=== PATIENT | male | born 1995 | race African-American/Black ===

== ENCOUNTER 2022-11-19 19:44 | Emergency (ER) | payer OTHER, SELFPAY ==
--- NOTE | ~2022-11-19 | XR_ITS ---
EXAMINATION: XR wrist RT min 3V INDICATION: Right wrist pain TECHNIQUE: Four views of the right wrist are obtained. COMPARISON: None available FINDINGS: No fracture, dislocation, or subluxation. The bones, soft tissues, and joint spaces are nor mal. IMPRESSION: 1. No acute osseous abnormality. Reviewed, dictated and finalized at location F. ER OPERATOR PIN
--- NOTE | 2022-11-19 19:47 | ED.EXTPRO ---
HPI - Extremity Problem General Chief complaint: Extremity Injury, Upper Stated complaint: Right Wrist Pain Time Seen by Provider: 11/19/22 19:47 Source: patient Mode of arrival: ambulatory Limitations: no limitations History of Present Illness HPI Narrative: Rosie is a 27-year-old male patient presenting to the clinic with complaints of right wrist pain. He reports his right wrist was injured-possibly dislocated earlier today and he popped back into place. He is having pain over radial aspect of the right wrist. Related Data Home Medications Medication Instructions Recorded Confirmed No Home Medications 11/19/22 11/19/22 Allergies Allergy/AdvReac Type Severity Reaction Status Date / Time No Known Allergies Allergy Verified 11/19/22 19:56 Review of Systems Review of Systems: Pertinent positives per HPI. Patient denies any fever, chills, rash, headache, visual changes, dizziness, cough, shortness of breath, chest pain, palpitations, nausea, vomiting, diarrhea, constipation, abdominal pain, or any urinary issues. PMFSH Comments At the time of my signature, I reviewed and agree with the nursing past medical, surgical, social, and family history. There is no relevant family history pertinent to the patient complaint. Exam Narrative: General: Well-developed, well nourished, in no apparent distress Head: Normocephalic, atraumatic. Cardio: Regular rate and rhythm, s1 and s2 normal, no murmur appreciated. Resp: Clear to auscultation bilaterally, no rhonchi, rales, wheezing or rubs. Musculoskeletal: Swelling over the anterior aspect of the right radius, tender to palpation over the right radial wrist, wrist flexion and extension along with ulnar and radial deviation are limited due to pain, he is able to flex and extend all his fingers without lag, muscle strength strong and equal, peripheral pulse strong, no cyanosis, normal gait and station Course Course Emergency Course: Portions of this record may have been created with voice recognition software. Level of Care: Express Care Visit Vital Signs Vital signs: Vital Signs Temperature 36.8 C 11/19/22 19:58 Pulse Rate 95 11/19/22 19:58 Respiratory Rate 16 11/19/22 19:58 Blood Pressure 156/79 H 11/19/22 19:58 Oxygen Delivery Room Air 11/19/22 19:58 Temperature 36.8 C 11/19/22 20:01 Pulse Rate 95 11/19/22 20:01 Respiratory Rate 16 11/19/22 20:01 Blood Pressure 156/79 H 11/19/22 20:01 Oxygen Delivery Room Air 11/19/22 20:01 Vital signs reviewed MDM - Extremity (Nontraumatic) MDM Narrative Medical decision making narrative: At the time of visit patient is resting comfortably on the exam table Imaging Data Radiologist's impression: [facility] [address] [place] [address] XRay Report Signed Patient: Rosie Willingham : 1995 MR#: [id number] Age/Sex: 27 / M Acct:[id number] Loc: [facility]? ? ADM Date: 11/19/22Attending Dr: Ordering Physician: Beto Bolaños APRN Date of Service: 11/19/22 Procedure(s): XR wrist RT min 3V Accession Number(s): [id number] cc: Beto Bolaños APRN; FINISH MACHINE TENDER PHYSICIAN~ EXAMINATION: XR wrist RT min 3V INDICATION: Right wrist pain TECHNIQUE: Four views of the right wrist are obtained. COMPARISON: None available FINDINGS: No fracture, dislocation, or subluxation. The bones, soft tissues, and joint spaces are normal. IMPRESSION: 1. No acute osseous abnormality. Reviewed, dictated and finalized at location F. NG SCRUBBER Dictated By:? Robin Tracey MD? 11/19/222010 Signed By:? ? <Electronically signed by? Robin Tracey MD in OV> 11/19/222010 Discharge Plan Discharge Clinical Impression: Wrist pain, right Contusion of right wrist Qualifiers: Encounter
[2022-11-19 19:58] VITALS: BP 156/79; PULSE 95; RESP 16; TEMP 36.8
[2022-11-19 20:01] VITALS: BP 156/79; PULSE 95; RESP 16; TEMP 36.8
== END 2022-11-19 20:20 | disposition home or self-care (01) ==
PROVIDERS: Emergency Provider Nurse Practitioner Family
DX: S60.211A Contusion of right wrist, initial encounter (principal); X58.XXXA Exposure to other specified factors, initial encounter
CPT/HCPCS: 73110; 99213; G0463

== ENCOUNTER 2023-03-12 14:38 | Emergency (ER) | payer MEDICAID, SELFPAY ==
[2023-03-12 14:47] VITALS: BP 132/62; PULSE 84; RESP 16; TEMP 36.4; O2SAT 97
--- NOTE | 2023-03-12 14:56 | ED.GENADULT ---
HPI - General Adult General Chief complaint: Unspecified Stated complaint: Inhaler Time Seen by Provider: 03/12/23 14:50 Source: patient Mode of arrival: ambulatory Limitations: no limitations History of Present Illness HPI narrative: Tobi is a 27-year-old male patient presenting to the clinic today with complaints shortness of breath and wheezing that began this morning. He reports he is out of his albuterol inhaler and is requesting a refill. Does have history of asthma. States cough is not productive. No fever or chills. Related Data Home Medications Medication Instructions Recorded Confirmed albuterol sulfate 90 mcg/actuation 2 puff inhalation DAILY PRN SOB 03/12/23 03/12/23 aerosol inhaler (Ventolin HFA) Allergies Allergy/AdvReac Type Severity Reaction Status Date / Time No Known Allergies Allergy Verified 03/12/23 14:43 Review of Systems Review of Systems: Pertinent positives per HPI. Patient denies any fever, chills, rash, headache, visual changes, dizziness, runny nose, sore throat, shortness of breath, chest pain, palpitations, nausea, vomiting, diarrhea, constipation, abdominal pain, or any urinary issues. PMFSH Comments At the time of my signature, I reviewed and agree with the nursing past medical, surgical, social, and family history. There is no relevant family history pertinent to the patient complaint. Exam Narrative: General: Well-developed, well nourished, in no apparent distress Head: Normocephalic, atraumatic Eyes: Pupils equally round and reactive to light bilaterally, EOM intact, sclera and conjunctive clear, no discharge, lids normal Ears: TMs intact and clear, ear canals clear, no drainage, grossly hearing normal. Nose: Nares patent, no discharge, no inflammation, no sinus tenderness. Mouth: Oropharynx without lesions or masses, good dentition, MMM. Neck: Supple, trachea midline, no enlargement of anterior or posterior cervical nodes, no thyroid masses or goiter palpable. Cardio: Regular rate and rhythm, s1 and s2 normal, no murmur appreciated. Resp: Inspiratory and expiratory wheezing throughout lung verdin, no rhonchi, rales, or rubs Course Course Emergency Course: Portions of this record may have been created with voice recognition software. Level of Care: Express Care Visit Vital Signs Vital signs: Vital Signs Temperature 36.4 C 03/12/23 14:47 Pulse Rate 84 03/12/23 14:47 Respiratory Rate 16 03/12/23 14:47 Blood Pressure 132/62 03/12/23 14:47 Pulse Oximetry 97 03/12/23 14:47 Oxygen Delivery Room Air 03/12/23 14:47 Temperature 36.4 C 03/12/23 14:47 Pulse Rate 84 03/12/23 14:47 Respiratory Rate 16 03/12/23 14:47 Blood Pressure 132/62 03/12/23 14:47 Pulse Oximetry 97 03/12/23 14:47 Oxygen Delivery Room Air 03/12/23 14:47 Vital signs reviewed Medical Decision Making MDM Narrative Medical decision making narrative: At the time of visit patient is resting comfortably on the exam table. Patient is wheezing. Offered nebulizer treatment he declines. Prescription for albuterol inhaler was sent to pharmacy and supportive measures were discussed with the patient he voiced understanding discharge instructions and agrees to treatment plan Differential Diagnosis Differential Diagnosis: Asthma, bronchitis, COPD Vital Signs Vital Signs: Vital Signs Temperature 36.4 C 03/12/23 14:47 Pulse Rate 84 03/12/23 14:47 Respiratory Rate 16 03/12/23 14:47 Blood Pressure 132/62 03/12/23 14:47 Pulse Oximetry 97 03/12/23 14:47 Oxygen Delivery Room Air 03/12/23 14:47 Temperature 36.4 C 03/12/23 14:47 Pulse Rate 84 03/12/23 14:47 Respiratory Rate 16 03/12/23 14:47 Blood Pressure 132/62 03/12/23 14:47 Pulse Oximetry 97 03/12/23 14:47 Oxygen Delivery Room Air 03/12/23 14:47 Discharge Plan Discharge Clinical Impression: Asthma Patient Disposition: Home, Self-Care
== END 2023-03-12 15:01 | disposition home or self-care (01) ==
PROVIDERS: Emergency Provider Nurse Practitioner Family
DX: J45.909 Unspecified asthma, uncomplicated (principal)
CPT/HCPCS: 99213; G0463

== ENCOUNTER 2023-03-24 14:54 | Emergency (ER) | payer MEDICAID, SELFPAY ==
--- NOTE | ~2023-03-24 | XR_ITS ---
PA, oblique, and lateral views of the right thumb Clinical history: Injury FINDINGS: No fracture or dislocation seen. Osseous alignment is anatomic. Joint spaces are preserved. Soft tissues are unremarkable. IMPRESSION: Unremarkable exam. Reviewed, dictated and finalized at location M. IMPRESSION: Unremarkable exam.
[2023-03-24 15:04] VITALS: BP 126/70; PULSE 75; RESP 16; TEMP 36.9; O2SAT 100
--- NOTE | 2023-03-24 15:26 | ED.UPPEXIN ---
HPI - Extremity Injury (Upper) General Chief Complaint: Extremity Injury, Upper Stated Complaint: right thumb pain Time Seen by Provider: 03/24/23 15:22 Source: patient and RN notes reviewed Mode of arrival: ambulatory Limitations: no limitations History of Present Illness HPI narrative: 27-year-old male presents with concern for injury to the 1st digit of the right hand. He reports he injured it at football yesterday, it felt like it popped out of place and then he popped it back in. He reports decreased range of motion, swelling, pain to the digit. MD complaint: injury to: right and finger Related Data Home Medications Medication Instructions Recorded Confirmed albuterol sulfate 90 mcg/actuation 2 puff inhalation DAILY PRN SOB 03/12/23 03/24/23 aerosol inhaler (Ventolin HFA) Allergies Allergy/AdvReac Type Severity Reaction Status Date / Time No Known Allergies Allergy Verified 03/24/23 15:03 Review of Systems Review of Systems: CONSTITUTIONAL: Denies malaise, chills, sweats, or fever. SKIN: Denies rash or itching, open skin, laceration, abrasion, redness, warmth MUSCULOSKELETAL: Reports pain, swelling to the 1st digit of the right hand NEUROLOGIC: Denies numbness, weakness All systems reviewed & are unremarkable except as noted in HPI and below PMFSH Comments At time of signature, agree with nursing past medical, surgical, social and family history. There is no relevant family history pertinent to the presenting complaint Exam Narrative: GENERAL: Well-appearing, well-nourished, and in no acute distress. HEAD: Normocephalic EYES: PERRLA, conjunctivae clear NECK: Supple. CHEST: Speaks in full sentences. No respiratory distress. HEART: Regular rate and rhythm. Normal and equal peripheral pulses. EXTREMITIES: 1st digit of the right hand has normal sensation. 3/5 strength with digit flexion, extension. Range of motion limited. No clubbing, cyanosis. Tenderness, edema noted to the base of the digit. Skin intact. Normal digital cascade with flexion of fingers, median, ulnar and radial nerve intact. Normal sensation of each side of finger. Normal thumb opposition. Good capillary refill and radial pulse. Distal capillary refill less than 3 seconds. SKIN: Warn, dry, intact, pink. No rash NEURO: Alert and oriented x3. PSYCH: Normal mood and affect Course Course Emergency Course: Patient was advised that if his symptoms do not improve he should follow-up with a hand specialist. Patient is aware of diagnosis, understands and agrees to treatment plan. Anticipatory guidance given. Patient agrees to follow-up as directed and is aware of reasons to seek care at the emergency department. Portions of this record may have been created with voice recognition software Level of Care: Express Care Visit Vital Signs Vital signs: Vital Signs Temperature 98.4 F 03/24/23 15:04 Pulse Rate 75 03/24/23 15:04 Respiratory Rate 16 03/24/23 15:04 Blood Pressure 126/70 03/24/23 15:04 Pulse Oximetry 100 03/24/23 15:04 Oxygen Delivery Room Air 03/24/23 15:04 Temperature 98.4 F 03/24/23 15:04 Pulse Rate 75 03/24/23 15:04 Respiratory Rate 16 03/24/23 15:04 Blood Pressure 126/70 03/24/23 15:04 Pulse Oximetry 100 03/24/23 15:04 Oxygen Delivery Room Air 03/24/23 15:04 Reviewed. Critical Care Time Critical Care Time Critical Care Time: No Discharge Plan Discharge Clinical Impression: Finger sprain Patient Disposition: Home, Self-Care Condition: Stable Instructions: Finger Sprain (ED) Additional Instructions: Avoid activities that cause pain until the pain subsides. Ice to the area 20-30 minutes 4-6 times a day Elevate above heart Oorthopedic splint as directed for the next 5-7 days Tylenol for lesser pain Ibuprofen regularly for the next 2-3 days for the inflammation Follow up with your primary care provider if the condition is not improving within 1 week
== END 2023-03-24 15:40 | disposition home or self-care (01) ==
PROVIDERS: Emergency Provider Nurse Practitioner
DX: S63.601A Unspecified sprain of right thumb, initial encounter (principal); X58.XXXA Exposure to other specified factors, initial encounter; Y93.61 Activity, american tackle football; J45.909 Unspecified asthma, uncomplicated
CPT/HCPCS: 29130; 73140; 99213; G0463

== ENCOUNTER 2023-06-17 12:11 | Emergency (ER) | payer MEDICAID, SELFPAY ==
[2023-06-17 12:23] VITALS: BP 120/76; PULSE 84; RESP 16; TEMP 37.2; O2SAT 98
--- NOTE | 2023-06-17 12:30 | ED.ASTHMA ---
HPI - Asthma General Chief Complaint: Asthma Stated Complaint: Asthma Time Seen by Provider: 06/17/23 12:30 Source: patient Mode of arrival: ambulatory Limitations: no limitations History of Present Illness HPI Narrative: 27 yo M with hx of asthma presents for medication refill. Does not have a primary care physician. States asthma been attacking up the past month . Mild SOB at this time. All systems reviewed and negative except as noted above. Related Data Home Medications Medication Instructions Recorded Confirmed albuterol sulfate 90 mcg/actuation 2 puff inhalation DAILY PRN SOB 03/12/23 06/17/23 aerosol inhaler (Ventolin HFA) Allergies Allergy/AdvReac Type Severity Reaction Status Date / Time No Known Allergies Allergy Verified 06/17/23 12:24 Review of Systems Review of Systems: CONSTITUTIONAL: Denies fever, chills, or sweats. EYES: Denies visual changes, redness, or discharge. ENT: Denies rhinorrhea, congestion, sore throat, or otalgia. CARDIOVASCULAR: Denies chest pain, palpitations, or edema. RESPIRATORY: Reports cough, wheezing and mild dyspnea. GASTROINTESTINAL: Denies abdominal pain, nausea, vomiting, or diarrhea. GENITOURINARY: Denies dysuria or hematuria. SKIN: Denies rash or itching. MUSCULOSKELETAL: Denies back pain, joint pain, or myalgia. NEUROLOGIC: Denies headache, numbness, or weakness. PSYCHIATRIC: Denies anxiety or depression. All other systems reviewed are negative, except as documented in HPI. PMFSH Comments At time of signature, agree with nursing past medical, surgical, social and family history. There is no relevant family history pertinent to the presenting complaint. Exam Narrative: GENERAL: This is a well-nourished, well-developed patient, in no apparent distress. HEAD: normocephalic, atraumatic. EYES: PERRL. Sclera clear/white. Vision is grossly intact. EARS: External ears normal NOSE: External nose normal NECK: Neck supple, non-tender without lymphadenopathy, masses or thyromegaly. CARDIOVASCULAR: Regular rate and rhythm without murmurs, gallops, or rubs. RESPIRATORY: wheezing to upper lung verdin on expiration, diminished to lower lung verdin. No rales, or rhonchi. SKIN: warm, Dry, intact with no suspicious lesions or rash, good texture and turgor. NEURO: awake, alert, and oriented to person, place and time. There were no obvious focal neurologic abnormalities. EXTREMITIES: No joint tenderness, effusion, or edema noted. Course Course Level of Care: Express Care Visit Reevaluation(s) Reevaluation #1: clear to auscultation after DuoNeb Vital Signs Vital signs: Vital Signs Temperature 37.2 C 06/17/23 12:23 Pulse Rate 84 06/17/23 12:23 Respiratory Rate 16 06/17/23 12:23 Blood Pressure 120/76 06/17/23 12:23 Pulse Oximetry 98 06/17/23 12:23 Oxygen Delivery Room Air 06/17/23 12:23 Temperature 37.2 C 06/17/23 12:23 Pulse Rate 84 06/17/23 12:23 Respiratory Rate 16 06/17/23 12:23 Blood Pressure 120/76 06/17/23 12:23 Pulse Oximetry 98 06/17/23 12:23 Oxygen Delivery Room Air 06/17/23 12:23 reviewed MDM - Asthma MDM Narrative Medical decision making narrative: Patient is aware of diagnosis, understands and agrees to treatment plan. Anticipatory guidance given. Patient agrees to follow-up as directed and is aware of reasons to seek care at the emergency department. Portions of this record may have been created with voice recognition software Discharge Plan Discharge Clinical Impression: Asthma with acute exacerbation Patient Disposition: Home, Self-Care Condition: Stable Instructions: Antibiotic Form, Asthma (ED) Additional Instructions: Take medications as prescribed. Follow up with a primary care physician at next available appointment. For any worsening of symptoms go to the ER. Prescriptions: New albuterol sulfate 90 mcg/actuation HFA aerosol inhaler 2 puff i
[2023-06-17] MEDS: predniSONE 20 MG TABLET 40 MG PO (12:41)
[2023-06-17] MEDS: ALBUTEROL SULFATE NEB 2.5 MG/3 ML INH INHALATION (12:42)
[2023-06-17] MEDS: IPRATROPIUM BR 0.02% INH SOLN 0.5 MG/2.5 ML VIAL INHALATION (12:42)
== END 2023-06-17 13:11 | disposition home or self-care (01) ==
PROVIDERS: Emergency Provider Nurse Practitioner Family
DX: J45.901 Unspecified asthma with (acute) exacerbation (principal)
CPT/HCPCS: 94640; 99213; G0463; J7512

== ENCOUNTER 2023-09-04 11:30 | Emergency (ER) | payer MEDICAID, SELFPAY ==
--- NOTE | ~2023-09-04 | XR_ITS ---
EXAMINATION: XR foot LT min 3V DATE: 09/04/2023 11:53 INDICATION: Left foot pain. Injury. TECHNIQUE: 4 views of left foot were obtained. COMPARISON: None. FINDINGS: Bone alignment is normal. No fracture. There is mild osteoarthritis of first metatarsophala ngeal joint. IMPRESSION: 1. Mild osteoarthritis of first metatarsophalangeal joint. Reviewed, dictated and finalized at location A. DECORATOR
[2023-09-04 11:42] VITALS: BP 122/84; PULSE 96; RESP 16; TEMP 37.2; O2SAT 99
[2023-09-04 11:43] VITALS: BP 122/84; PULSE 96; RESP 16; TEMP 38.9; O2SAT 99
--- NOTE | 2023-09-04 12:03 | ED.LOWEXIN ---
HPI - Extremity Injury (Lower) General Chief Complaint: Extremity Injury, Lower Stated Complaint: left injured Source: patient and RN notes reviewed Mode of arrival: ambulatory Limitations: no limitations History of Present Illness HPI Narrative: 28-year-old male presents concern for left foot injury. Reports on Thursday [place] and hurt his foot. Reports swelling. He denies any intervention or [id number] medications. MD complaint: foot injury Related Data Allergies Allergy/AdvReac Type Severity Reaction Status Date / Time No Known Allergies Allergy Verified 06/17/23 12:24 Review of Systems Review of Systems: CONSTITUTIONAL: Denies malaise, chills, sweats, or fever. SKIN: Denies rash or itching, open skin, laceration, abrasion, redness, warmth MUSCULOSKELETAL: Reports left foot pain and swelling NEUROLOGIC: Denies numbness, weakness All systems reviewed & are unremarkable except as noted in HPI and below PMFSH Comments At time of signature, agree with nursing past medical, surgical, social and family history. There is no relevant family history pertinent to the presenting complaint Exam Narrative: GENERAL: Well-appearing, well-nourished, and in no acute distress. HEAD: Normocephalic, atraumatic. EYES: PERRLA, conjunctivae clear NECK: Supple. CHEST: Speaks in full sentences. No respiratory distress. HEART: Regular rate and rhythm. Normal and equal peripheral pulses. EXTREMITIES: Left foot and digits have grossly normal strength and sensation, normal range of motion. Mild dorsal edema, no ecchymosis. 5/5 strength with digit flexion and extension. Normal sensation with sensitivity to light touch and pain. No point tenderness. No open wounds, no skin tenting, no devitalized tissue or atrophy, no trophic changes, no obvious deformity, alignment normal, nearby joints and structures intact. Distal pulses palpable and equal bilaterally, skin warm, dry, pink. Capillary refill less than 3 seconds. SKIN: Warm, dry, no rash. NEURO: Alert and oriented x3. PSYCH: Normal mood and affect Course Course Emergency Course: Patient is aware of diagnosis, understands and agrees to treatment plan. Anticipatory guidance given. Patient agrees to follow-up as directed and is aware of reasons to seek care at the emergency department. Portions of this record may have been created with voice recognition software Level of Care: Express Care Visit Vital Signs Vital signs: Vital Signs Temperature 98.9 F 09/04/23 11:42 Pulse Rate 96 09/04/23 11:42 Respiratory Rate 16 09/04/23 11:42 Blood Pressure 122/84 09/04/23 11:42 Pulse Oximetry 99 09/04/23 11:42 Oxygen Delivery Room Air 09/04/23 11:42 Temperature 102.1 F H 09/04/23 11:43 Pulse Rate 96 09/04/23 11:43 Respiratory Rate 16 09/04/23 11:43 Blood Pressure 122/84 09/04/23 11:43 Pulse Oximetry 99 09/04/23 11:43 Oxygen Delivery Room Air 09/04/23 11:43 Reviewed. MDM - Extremity Injury (Lower) MDM Narrative Medical decision making narrative: Patients injury and pain is consistent with musculoskeletal etiology. No signs of neurological or vascular compromise on exam. Compartments and tissues are soft without signs of compartment syndrome. Pain is felt appropriate for further evaluation on an outpatient basis. Critical Care Time Critical Care Time Critical Care Time: No Discharge Plan Discharge Clinical Impression: Foot sprain Patient Disposition: Home, Self-Care Condition: Stable Instructions: Foot Sprain (ED) Additional Instructions: Avoid activities that cause pain until the pain subsides. Ice to the area 20-30 minutes 4-6 times a day Elevate above heart Elastic wrap as directed for comfort for the next 5-7 days Tylenol for lesser pain Ibuprofen regularly for the next 2-3 days for the inflammation Follow up with your primary care provider if the condition is not improving within 1 week.
== END 2023-09-04 12:18 | disposition home or self-care (01) ==
PROVIDERS: Emergency Provider Nurse Practitioner
DX: S93.602A Unspecified sprain of left foot, initial encounter (principal); X50.9XXA Other and unspecified overexertion or strenuous movements or postures, initial encounter; J45.909 Unspecified asthma, uncomplicated
CPT/HCPCS: 73630; 99213; G0463

== ENCOUNTER 2024-01-16 11:14 | Emergency (ER) | payer MEDICAID, SELFPAY ==
[2024-01-16 11:25] VITALS: BP 141/76; PULSE 69; RESP 16; TEMP 36.8; O2SAT 100
--- NOTE | 2024-01-16 11:39 | ED.ASTHMA ---
HPI - Asthma General Chief Complaint: Asthma Stated Complaint: Asthma Time Seen by Provider: 01/16/24 11:29 Source: patient and RN notes reviewed Mode of arrival: ambulatory Limitations: no limitations History of Present Illness HPI Narrative: Patient presents today requesting a refill for his albuterol inhaler nebulizer treatments. States he has been using his inhaler increasingly over the past month, but denies wheezing or shortness of breath. He does take an antihistamine daily for allergy symptoms and states his wheezing increases with pollen and certain perfumes. States he does not currently have a PCP. Has been seen here at [facility] many times over the past year for similar asthma exacerbations symptoms and albuterol refills. Related Data Allergies Allergy/AdvReac Type Severity Reaction Status Date / Time No Known Allergies Allergy Verified 01/16/24 11:25 Review of Systems Review of Systems: CONSTITUTIONAL: Denies body aches, fever, chills, or sweats. EYES: Denies visual changes, redness, or discharge. ENT: Denies rhinorrhea, congestion, sore throat, or otalgia. CARDIOVASCULAR: Denies chest pain, palpitations, or edema. RESPIRATORY: Denies cough or dyspnea. GASTROINTESTINAL: Denies abdominal pain, nausea, vomiting, or diarrhea. GENITOURINARY: Denies dysuria or hematuria. SKIN: Denies rash, itching, or wounds. MUSCULOSKELETAL: Denies back pain, joint pain, or myalgia. NEUROLOGIC: Denies headache, numbness, tingling, or weakness. PSYCH: Denies depression or anxiety. FOR[facility], LAT[facility] Past Medical History Medical History (Updated 01/16/24 @ 11:44 by Lulu Craig, [facility], ) Asthma Comments At time of signature, I have reviewed and agree with nursing past medical, surgical, social and family history unless otherwise noted. Please see nursing chart for further information. There is no relevant family history pertinent to the presenting complaint Exam Narrative: GENERAL: Well-appearing, well-nourished, and in no acute distress. HEAD: Normocephalic, atraumatic. EYES: EOMI. No redness or drainage. Conjunctivae normal. ENT: Mucous membranes pink and moist. Nares clear. No rhinorrhea. NECK: Normal AROM. Supple. No lymphadenopathy. CHEST: No respiratory distress. Inspiratory and expiratory wheezing throughout. Able to speak in complete sentences. HEART: Regular rate and rhythm. No murmur appreciated. EXTREMITIES: Normal range of motion. No edema. SKIN: Warm, dry, no rash. Capillary refill normal. Normal skin turgor. NEURO: No focal deficits. Alert and oriented x3. Gait steady. PSYCH: Normal affect. No signs of depression or anxiety. Course Course Level of Care: Express Care Visit Vital Signs Vital signs: Vital Signs Temperature 98.2 F 01/16/24 11:25 Pulse Rate 69 01/16/24 11:25 Respiratory Rate 16 01/16/24 11:25 Blood Pressure 141/76 H 01/16/24 11:25 Pulse Oximetry 100 01/16/24 11:25 Oxygen Delivery Room Air 01/16/24 11:25 Temperature 98.2 F 01/16/24 11:25 Pulse Rate 69 01/16/24 11:25 Respiratory Rate 16 01/16/24 11:25 Blood Pressure 141/76 H 01/16/24 11:25 Pulse Oximetry 100 01/16/24 11:25 Oxygen Delivery Room Air 01/16/24 11:25 Reviewed MDM - Asthma MDM Narrative Medical decision making narrative: Patient has been given refills for his rescue inhaler and albuterol nebs as well as a 5 day course of prednisone to help with his asthma exacerbation. He has been instructed to continue the antihistamine as well. Phone number for the [facility] physician liaison has been given to help find a PCP. Patient is agreeable to plan. Anticipatory guidance given. Differential Diagnosis Differential diagnosis: Likely Acute exacerbation and Status asthmaticus Critical Care Time Critical Care Time Critical Care Time: No Discharge Plan Discharge Clinical Impression: Asthma with acute exacerbation Qualifiers: Asthma severity: unspecified sev
== END 2024-01-16 11:45 | disposition home or self-care (01) ==
PROVIDERS: Emergency Provider Nurse Practitioner
DX: J45.901 Unspecified asthma with (acute) exacerbation (principal)
CPT/HCPCS: 99213; G0463